=== PATIENT | male | born 1990 | race Caucasian/White ===

== ENCOUNTER 2021-04-16 14:34 | Outpatient (CLI) | payer BC, SELFPAY ==
[2021-04-16 15:14] LABS: Hematocrit 42.5 % (42.0-52.0); Hemoglobin 14.2 g/dL (14.0-18.0); Mean Corpuscular HGB Conc 33.4 g/dl (32-36); Mean Corpuscular Hemoglobin 31.8 pg (26-34); Mean Corpuscular Volume 95.3 fl (80-100); Mean Platelet Volume 8.9 fl (7.4-10.4); Platelet Count Result 228 k/mm3 (150-375); Red Blood Count 4.46 M/mm3 (4.6-6.20); Red Cell Distribution Width 11.9 % (11.5-14.5); White Blood Count 5.7 K/mm3 (4.5-10.0)
[2021-04-16 15:25] LABS: INR 1.1; Prothrombin Time 13.3 Seconds (11.1-14.7)
[2021-04-16 15:27] LABS: Alanine Aminotransferase 28 U/L (4-50); Alkaline Phosphatase 65 U/L (38-126); Anion Gap 6 mmol/L (8-16); Aspartate Amino Transferase 37 U/L (17-59); Bilirubin,Total 0.5 mg/dL (0.2-1.3); Blood Urea Nitrogen 13 mg/dL (9-20); Calcium 9.3 mg/dL (8.4-10.2); Carbon Dioxide 30 mmol/L (22-30); Chloride 102 mmol/L (98-107); Estimated Glomerular Filt Rate > 60; Glucose 73 mg/dL (65-110); Potassium 3.8 mmol/L (3.4-5.0); Sodium 138 mmol/L (137-145)
[2021-04-16 16:10] LABS: HIV 1/2 Ab P24 Ag Result Negative (Negative)
[2021-04-16 16:16] LABS: Hepatitis B Surface Antigen Negative (Negative)
[2021-04-16 16:22] LABS: Hepatitis B Core IgM Result Negative (Negative)
[2021-04-16 16:58] LABS: Hepatitis B Surface Anti Res Positive
[2021-04-19 16:35] LABS: PCP NEGATIVE ng/mL (<25)
[2021-04-20 05:00] LABS: Hepatitis C Viral RNA PCR 418 IU/mL
[2021-04-20 11:48] LABS: Hepatitis B Core Ab Total Nonreactive (Nonreactive)
[2021-04-21 20:15] LABS: HCV Genotype, LiPA 1a
[2021-04-25 14:32] LABS: ALT 21 U/L (9-46); Alpha-2-Macroglobulin 154 mg/dL (106-279); Apolipoprotein A1 138 mg/dL (94-176); Fibrosis Score 0.05; Fibrosis Stage F0; GGT 6 U/L (3-70); Haptoglobin 59 mg/dL (43-212); Necroinflammat Act Grade A0; Total Bilirubin 0.3 mg/dL (0.2-1.2)
[2021-05-01 21:06] LABS: Alpha Fetoprotein Tumor Marker 2.1 ng/mL (<6.1)
[2021-05-10 12:27] LABS: Amphetamines NEGATIVE; Marijuana Metabolites NEGATIVE
[2021-05-10 12:28] LABS: Barbiturates NEGATIVE; Benzodiazepines NEGATIVE
[2021-05-10 12:29] LABS: Cocaine Metabolites NEGATIVE
== END 2021-04-16 14:35 | disposition home or self-care (01) ==
PROVIDERS: Visit Provider Nurse Practitioner Family
DX: B19.20 Unspecified viral hepatitis C without hepatic coma (principal)
CPT/HCPCS: 36415; 80053; 80307; 81596; 82105; 85027; 85610; 86703; 86704; 86705; 86706; 87340; 87522; G0432